=== PATIENT | male | born 1935 | race Caucasian/White ===

== ENCOUNTER 2018-08-28 08:47 | Day surgery (SDC) | payer MEDICARE, OTHER ==
[~2018-08-28] VITALS: Ht 152.4 cm; Wt 79.6 kg
[~2018-08-28 08:47] MED LIST: ALKA-SELTZER H1 EACH PO; ANTACID CHEWAB1 EACH PO; BENADRYL25 MG PO; IBUP800 PO
--- NOTE | 2018-08-28 09:47 | NUR ---
Ambulatory in Day Surgery History, Chart, Medications and Allergies reviewed before start of procedure.Patient confirms NPO status and agrees with scheduled surgery. Patient reports completing Chlorhexadine shower X2 prior to admission to hospital. MUCIPOIRIN AND CHLOREXADINE SHOWERS TIMES 5 DAYS DUE TO POSITIVE NASAL SWAB FOR STAPH. Surgical site prepped with 2% Chlorhexidine cloth wipe.
--- NOTE | 2018-08-28 10:23 | NUR ---
NOSIN NASAL SWABS DONE
--- NOTE | 2018-08-28 14:00 | NUR ---
PT ARRIVED TO ROOM IN OWN BED, A/0 X 4, PLEASANT/COOPERATIVE, NO PAIN AT THIS TIME PT RECVD SPINAL ANESTHESIA. NO N/V, PROVIDED FLUIDS AND SNACK. PT'S FAMILY IN ROOM. POST OP VS COMMENCED AND STABLE. GOOD CAPILLARY REFILL TO OPERATIVE LIMB, AQUACELL C/D/I
--- NOTE | 2018-08-28 19:20 | NUR ---
shift summary: post op vss, no acute changes, pod 0 l tka with spinal anesthesia, sensation to ble with gross and fine movement. pt tolerated PO intake, no n/v. No urine output at shift change, notifed next shift RN. pt states he has no sensation to urinate, provided with urinal. pt up to bathroom with nursing staff, plan PT tomorrow. pt reports no pain, encouraged to notify RN at onset of pain. pt understands aquacel and andres wrap to operative knee with no shadowing, trace swelling, normal pedal pulses an cap refill. pt a/0 x 4, pleasant/cooperative
[2018-08-29 04:55] LABS: BASOPHILS ABSOLUTE AUTO 0.02 K/mm3 (0.00-0.23); BASOPHILS PERCENT AUTO 0 % (0-2); EOSINOPHILS PERCENT AUTO 0 % (0-6); Hematocrit 39.2 % (37.0-53.0); IMMATURE GRAN ABSOLUTE AUTO 0.08 K/mm3 (0.00-0.10); IMMATURE GRAN PERCENT AUTO 0 % (0-1); LYMPHOCYTES ABSOLUTE AUTO 1.33 K/mm3 (0.84-5.20); LYMPHOCYTES PERCENT AUTO 7 % (21-46); MONOCYTES ABSOLUTE AUTO 1.11 K/mm3 (0.16-1.47); MONOCYTES PERCENT AUTO 6 % (4-13); Mean Corpuscular HGB 31.8 pg (26.0-34.0); Mean Corpuscular HGB Conc 33.2 g/dL (31.5-36.5); Mean Corpuscular Volume 96 fL (80-100); Mean Platelet Volume 9.5 fL (9.1-12.4); NEUTROPHILS ABSOLUTE AUTO 15.46 K/mm3 (1.96-9.15); NEUTROPHILS PERCENT AUTO 86 % (41-73); Platelet Count 194 K/mm3 (150-400); RDW Coefficient Variation 11.8 % (11.7-14.2); RDW Standard Deviation 41.1 fL (35.1-46.3); Red Blood Cell Count 4.09 M/mm3 (4.30-5.90)
[2018-08-29 05:12] LABS: Anion Gap 10 mmol/L (6-16); Blood Urea Nitrogen 31 mg/dL (8-24); Bun/Creatinine Ratio 31.5 (12.0-20.0); CO2, Blood 22 mmol/L (21-32); Calcium, Blood 8.1 mg/dL (8.5-10.1); Chloride, Blood 108 mmol/L (98-108); Creatinine, Blood 0.98 mg/dL (0.60-1.20); Glomerular Filtration Rate >60 (60-); Glucose, Blood 124 mg/dL (70-99); Potassium, Blood 4.2 mmol/L (3.5-5.5); Sodium, Blood 140 mmol/L (136-145)
--- NOTE | 2018-08-29 05:54 | NUR ---
SHIFT SUMMARY PT A&O X4; POD#1 L TKA; DRESSING CDI T/O SHIFT. PPPX4. CRYOTHERAPY TO L KNEE. RA; VSS. PT DENIES SOB, CP AND NAUSEA. PAIN MANAGED PER EMAR. RYANNE'S AND SCD'S TO BLE'S. CALL LIGHT IN REACH. WCTM UNTIL REPORT TO DAY SHIFT RN.
[2018-08-29] MEDS ORDERED: LO-DOSE ASPIRIN81 MG PO (12:22)
[2018-08-29] MEDS ORDERED: Percocet 5-3251 EACH PO (12:23)
--- NOTE | 2018-08-29 15:10 | NUR ---
PATIENT D/C'D HOME WITH SON AT THIS TIME. PATIENT STATES MINIMAL PAIN. TOLERATING PO. STATES UNDERSTANDING OF MEDS, WOUND CARE, ACTIVITY, OP PT, F/U APPT, ETC. NO C/O.
== END 2018-08-29 15:05 | disposition home or self-care (01) ==
LOC: ORSCMMR 08:47 → ORD 10:45 → SURS 14:00 → ORSCMMR 08-29 15:05
PROVIDERS: Orthopaedic Surgery
PROC: 0SRD0JA Replacement of Left Knee Joint with Synthetic Substitute, Uncemented, Open Approach (ICD-10-PCS; principal; 2018-08-28 10:45)
DX: M17.12 Unilateral primary osteoarthritis, left knee (principal); J44.9 Chronic obstructive pulmonary disease, unspecified; I10 Essential (primary) hypertension; J45.909 Unspecified asthma, uncomplicated; Z79.899 Other long term (current) drug therapy
CPT/HCPCS: 36415; 73560-LT; 80048; 85025; 86850; 86900; 86901; 88300; 97110; 97116; 97162; 97530; C1713; C1776; J0171; J0690; J0735; J1100; J1885; J2250; J2370; J2405; J2704; J2795; J7050; J7120; Q0163

== ENCOUNTER 2018-10-14 10:10 | Day surgery (SDC) | payer MEDICARE, OTHER ==
[~2018-10-14] VITALS: Ht 167.6 cm; Wt 77.9 kg
[~2018-10-14 10:10] MED LIST changes: +LO-DOSE ASPIRIN81 MG PO; +Percocet 5-3251 EACH PO
--- NOTE | 2018-10-14 10:48 | NUR ---
Ambulatory in Day Surgery History, Chart, Medications and Allergies reviewed before start of procedure. Lungs clear T/O to Auscultation. Patient confirms NPO status and agrees with scheduled surgery. Pre-Op teaching done. Pt verbalizes understanding.
--- NOTE | 2018-10-14 17:00 | NUR ---
SHIFT SUMMARY PT POD 0 R TKA. AQUACEL W/MARVIN WRAP C/D/I. PT STILL HAS NO SENSATION IN RLE BUT HAS GROSS MOTOR MOVEMENT. PT EDUCATED ON THE NEED TO CALL ONCE HE STARTS TO HAVE SENSATION TO ASSESS FOR PAIN AND MEDICATE IF NEEDED.
--- NOTE | 2018-10-15 04:33 | NUR ---
SHIFT SUMMARY PT A&O X4 T/O SHIFT. POD#1 R TKA; MARVIN WRAP TO R KNEE CDI; PPPX4; EXT PWD; PAIN MANAGED PER EMAR. NO ACUTE CHANGES; PT DENIED SOB, NAUSEA AND CP/P. CALL LIGHT IN REACH. PT UP TO TOILET WITH FWW AND SBA. BED ALARM FOR SAFETY WHILE SLEEPING. WCTM UNTIL REPORT TO DAY SHIFT RN.
[2018-10-15 05:19] LABS: BASOPHILS ABSOLUTE AUTO 0.02 K/mm3 (0.00-0.23); BASOPHILS PERCENT AUTO 0 % (0-2); EOSINOPHILS PERCENT AUTO 0 % (0-6); Hematocrit 39.2 % (37.0-53.0); Hemoglobin 12.6 g/dL (13.5-17.5); IMMATURE GRAN ABSOLUTE AUTO 0.08 K/mm3 (0.00-0.10); IMMATURE GRAN PERCENT AUTO 0 % (0-1); LYMPHOCYTES ABSOLUTE AUTO 1.25 K/mm3 (0.84-5.20); LYMPHOCYTES PERCENT AUTO 7 % (21-46); MONOCYTES ABSOLUTE AUTO 1.04 K/mm3 (0.16-1.47); MONOCYTES PERCENT AUTO 6 % (4-13); Mean Corpuscular HGB 31.4 pg (26.0-34.0); Mean Corpuscular HGB Conc 32.1 g/dL (31.5-36.5); Mean Corpuscular Volume 98 fL (80-100); Mean Platelet Volume 9.4 fL (9.1-12.4); NEUTROPHILS ABSOLUTE AUTO 15.94 K/mm3 (1.96-9.15); NEUTROPHILS PERCENT AUTO 87 % (41-73); Platelet Count 239 K/mm3 (150-400); RDW Coefficient Variation 11.6 % (11.7-14.2); Red Blood Cell Count 4.01 M/mm3 (4.30-5.90); White Blood Cell Count 18.33 K/mm3 (4.00-11.30)
[2018-10-15 05:33] LABS: Anion Gap 5 mmol/L (6-16); Blood Urea Nitrogen 27 mg/dL (8-24); Bun/Creatinine Ratio 29.1 (12.0-20.0); CO2, Blood 28 mmol/L (21-32); Calcium, Blood 8.2 mg/dL (8.5-10.1); Chloride, Blood 106 mmol/L (98-108); Creatinine, Blood 0.93 mg/dL (0.60-1.20); Glomerular Filtration Rate >60 (60-); Glucose, Blood 112 mg/dL (70-99); Potassium, Blood 4.4 mmol/L (3.5-5.5); Sodium, Blood 139 mmol/L (136-145)
[2018-10-15] MEDS ORDERED: Percocet 5-3251 EACH PO (11:22)
--- NOTE | 2018-10-15 14:31 | NUR ---
DISCHARGE PT AND HIS SON WERE PROVIDED WITH WRITTEN AND VERBAL DISCHARGE INSTRUCTIONS. THEY REPORTED UNDERSTANDING INSTRUCTIONS AFTER QUESTIONS WERE ANSWERED. DRESSINGS AND SCRIPTS PROVIDED. VSS. WILL MONITOR UNTIL REPORT TO ONCOMING RN.
== END 2018-10-15 14:37 | disposition home or self-care (01) ==
LOC: ORSCMMR 10:10 → ORD 11:40 → ORSCMMR 14:52 → SURS 14:52 → ORSCMMR 10-15 14:37 → SURS 10-15 14:37
PROVIDERS: Orthopaedic Surgery
PROC: 0SRC0JA Replacement of Right Knee Joint with Synthetic Substitute, Uncemented, Open Approach (ICD-10-PCS; principal; 2018-10-14 11:40)
DX: M17.11 Unilateral primary osteoarthritis, right knee (principal); Z01.818 Encounter for other preprocedural examination; I10 Essential (primary) hypertension; J45.909 Unspecified asthma, uncomplicated
CPT/HCPCS: 36415; 73560-RT; 80048; 85025; 86850; 86900; 86901; 88300; 97110; 97116; 97161; 97530; C1776; J0171; J0690; J0735; J1100; J1885; J2250; J2370; J2405; J2704; J2795; J7120

== ENCOUNTER 2020-04-20 13:52 | Emergency (ER) | payer OTHER ==
[~2020-04-20] VITALS: Ht 167.6 cm; Wt 81.7 kg
[2020-04-20 14:21] LABS: BASOPHILS ABSOLUTE AUTO 0.03 K/mm3 (0.00-0.23); BASOPHILS PERCENT AUTO 0 % (0-2); EOSINOPHILS ABSOLUTE AUTO 0.14 K/mm3 (0.00-0.68); EOSINOPHILS PERCENT AUTO 2 % (0-6); Hematocrit 48.6 % (37.0-53.0); Hemoglobin 16.1 g/dL (13.5-17.5); IMMATURE GRAN ABSOLUTE AUTO 0.03 K/mm3 (0.00-0.10); IMMATURE GRAN PERCENT AUTO 0 % (0-1); LYMPHOCYTES PERCENT AUTO 18 % (21-46); MONOCYTES ABSOLUTE AUTO 0.69 K/mm3 (0.16-1.47); MONOCYTES PERCENT AUTO 8 % (4-13); Mean Corpuscular HGB 31.9 pg (26.0-34.0); Mean Corpuscular HGB Conc 33.1 g/dL (31.5-36.5); Mean Corpuscular Volume 96 fL (80-100); Mean Platelet Volume 9.4 fL (9.1-12.4); NEUTROPHILS ABSOLUTE AUTO 6.55 K/mm3 (1.96-9.15); NEUTROPHILS PERCENT AUTO 73 % (41-73); Platelet Count 202 K/mm3 (150-400); RDW Coefficient Variation 11.7 % (11.7-14.2); RDW Standard Deviation 41.4 fL (35.1-46.3); Red Blood Cell Count 5.05 M/mm3 (4.30-5.90); White Blood Cell Count 9.04 K/mm3 (4.00-11.30)
[2020-04-20 14:39] LABS: Alanine Aminotransfer (ALT/SGP 19 U/L (12-78); Albumin, Blood 3.5 g/dL (3.4-5.0); Albumin/Globulin Ratio 0.9 (0.8-1.8); Alk Phos 74 U/L (50-136); Anion Gap 7 mmol/L (6-16); Aspartate Aminotrans (AST/SGOT 15 U/L (12-37); Bilirubin, Total 0.6 mg/dL (0.1-1.0); Blood Urea Nitrogen 17 mg/dL (8-24); Bun/Creatinine Ratio 18.4 (12.0-20.0); CO2, Blood 27 mmol/L (21-32); Calcium, Blood 8.7 mg/dL (8.5-10.1); Chloride, Blood 108 mmol/L (98-108); Creatinine, Blood 0.92 mg/dL (0.60-1.20); Globulin, Blood 3.8 g/dL (2.2-4.0); Glomerular Filtration Rate >60 (60-); Glucose, Blood 120 mg/dL (70-99); Sodium, Blood 142 mmol/L (136-145); Total Protein, Blood 7.3 g/dL (6.4-8.2)
[2020-04-20 17:09] LABS: Source, Urine Clean Catch
[2020-04-20 17:19] LABS: Appearance, Urine Clear (Clear); Bilirubin, Urine Neg (Neg); Blood, Urine 3+ (Neg); Color, Urine Yellow (P-Yellow); Glucose Qualitative, Urine Neg (Neg); Ketones, Urine Neg (Neg); Leukocyte Esterase, Urine Neg (Neg); Nitrite, Urine Neg (Neg); Protein, Urine Neg (Neg); Urobilinogen, Urine NORM (Normal)
[2020-04-20 17:29] LABS: Bacteria Not Seen /hpf; Squamous Epithelial Cells Not Seen /hpf (Few); White Blood Cells, Urine Not Seen /hpf (0-5)
[2020-04-20] MEDS ORDERED: ONDA4ODT MM (17:39)
[2020-04-20] MEDS ORDERED: ACETAMINOPHEN500 MG PO (17:39)
== END 2020-04-20 17:51 | disposition home or self-care (01) ==
LOC: ER 13:52
PROVIDERS: Physician Assistant
DX: N13.2 Hydronephrosis with renal and ureteral calculous obstruction (principal); J44.9 Chronic obstructive pulmonary disease, unspecified; Z79.82 Long term (current) use of aspirin
CPT/HCPCS: 74019; 74177; 80053; 81001; 83690; 85025; 96374; 96375; 99284-25; J1885; J2405; Q9967

== ENCOUNTER 2020-08-16 20:10 | Emergency (ER) | payer OTHER ==
[~2020-08-16] VITALS: Ht 170.2 cm; Wt 74.8 kg
[~2020-08-16 20:10] MED LIST changes: +ACETAMINOPHEN500 MG PO; +ONDA4ODT MM
[2020-08-16 20:34] LABS: BASOPHILS ABSOLUTE AUTO 0.03 K/mm3 (0.00-0.23); BASOPHILS PERCENT AUTO 0 % (0-2); EOSINOPHILS PERCENT AUTO 0 % (0-6); Hemoglobin 16.7 g/dL (13.5-17.5); IMMATURE GRAN PERCENT AUTO 1 % (0-1); LYMPHOCYTES ABSOLUTE AUTO 0.72 K/mm3 (0.84-5.20); LYMPHOCYTES PERCENT AUTO 5 % (21-46); MONOCYTES PERCENT AUTO 6 % (4-13); Mean Corpuscular HGB 32.7 pg (26.0-34.0); Mean Corpuscular HGB Conc 34.8 g/dL (31.5-36.5); Mean Corpuscular Volume 94 fL (80-100); Mean Platelet Volume 10.1 fL (9.1-12.4); NEUTROPHILS ABSOLUTE AUTO 12.66 K/mm3 (1.96-9.15); NEUTROPHILS PERCENT AUTO 89 % (41-73); Platelet Count 151 K/mm3 (150-400); RDW Coefficient Variation 11.8 % (11.7-14.2); Red Blood Cell Count 5.11 M/mm3 (4.30-5.90); White Blood Cell Count 14.31 K/mm3 (4.00-11.30)
[2020-08-16 20:49] LABS: Alanine Aminotransfer (ALT/SGP 23 U/L (12-78); Albumin, Blood 3.2 g/dL (3.4-5.0); Albumin/Globulin Ratio 0.8 (0.8-1.8); Alk Phos 68 U/L (50-136); Anion Gap 6 mmol/L (6-16); Aspartate Aminotrans (AST/SGOT 62 U/L (12-37); Bilirubin, Total 0.8 mg/dL (0.1-1.0); Blood Urea Nitrogen 21 mg/dL (8-24); Bun/Creatinine Ratio 19.4 (12.0-20.0); CO2, Blood 25 mmol/L (21-32); Calcium, Blood 8.5 mg/dL (8.5-10.1); Chloride, Blood 103 mmol/L (98-108); Creatinine, Blood 1.08 mg/dL (0.60-1.20); Globulin, Blood 4.2 g/dL (2.2-4.0); Glomerular Filtration Rate >60 (60-); Glucose, Blood 114 mg/dL (70-99); Sodium, Blood 134 mmol/L (136-145); Total Protein, Blood 7.4 g/dL (6.4-8.2)
[2020-08-16] MEDS ORDERED: CEPHALEXIN500 M1 PO (22:01)
== END 2020-08-16 22:45 | disposition home or self-care (01) ==
LOC: ER 20:10
PROVIDERS: Physician Assistant
DX: S09.90XA Unspecified injury of head, initial encounter (principal); J44.9 Chronic obstructive pulmonary disease, unspecified; L03.116 Cellulitis of left lower limb; Z79.899 Other long term (current) drug therapy; W01.0XXA Fall on same level from slipping, tripping and stumbling without subsequent striking against object, initial encounter
CPT/HCPCS: 70450; 80053; 85025; 93005; 93010; 93971; 99284-25; A9270

== ENCOUNTER 2020-12-23 10:55 | Inpatient (IN) | payer OTHER, MEDICARE ==
[~2020-12-23] VITALS: Ht 170.2 cm; Wt 74.8 kg
[~2020-12-23 10:55] MED LIST changes: +CEPHALEXIN500 M1 PO
[2020-12-23 13:04] LABS: BASOPHILS ABSOLUTE AUTO 0.03 K/mm3 (0.00-0.23); BASOPHILS PERCENT AUTO 0 % (0-2); EOSINOPHILS PERCENT AUTO 1 % (0-6); Hematocrit 47.5 % (37.0-53.0); Hemoglobin 15.8 g/dL (13.5-17.5); IMMATURE GRAN ABSOLUTE AUTO 0.07 K/mm3 (0.00-0.10); IMMATURE GRAN PERCENT AUTO 1 % (0-1); LYMPHOCYTES ABSOLUTE AUTO 1.02 K/mm3 (0.84-5.20); LYMPHOCYTES PERCENT AUTO 7 % (21-46); MONOCYTES ABSOLUTE AUTO 0.61 K/mm3 (0.16-1.47); MONOCYTES PERCENT AUTO 4 % (4-13); Mean Corpuscular HGB 32.2 pg (26.0-34.0); Mean Corpuscular HGB Conc 33.3 g/dL (31.5-36.5); Mean Corpuscular Volume 97 fL (80-100); Mean Platelet Volume 9.8 fL (9.1-12.4); NEUTROPHILS ABSOLUTE AUTO 12.25 K/mm3 (1.96-9.15); NEUTROPHILS PERCENT AUTO 87 % (41-73); Platelet Count 179 K/mm3 (150-400); RDW Coefficient Variation 11.8 % (11.7-14.2); RDW Standard Deviation 42.4 fL (35.1-46.3); Red Blood Cell Count 4.91 M/mm3 (4.30-5.90); White Blood Cell Count 14.08 K/mm3 (4.00-11.30)
[2020-12-23 13:22] LABS: Alanine Aminotransfer (ALT/SGP 27 U/L (12-78); Albumin, Blood 3.4 g/dL (3.4-5.0); Albumin/Globulin Ratio 0.9 (0.8-1.8); Alk Phos 73 U/L (50-136); Anion Gap 7 mmol/L (6-16); Aspartate Aminotrans (AST/SGOT 21 U/L (12-37); Bilirubin, Total 0.6 mg/dL (0.1-1.0); Blood Urea Nitrogen 16 mg/dL (8-24); Bun/Creatinine Ratio 17.4 (12.0-20.0); CO2, Blood 26 mmol/L (21-32); Chloride, Blood 109 mmol/L (98-108); Creatinine, Blood 0.92 mg/dL (0.60-1.20); Globulin, Blood 3.6 g/dL (2.2-4.0); Glomerular Filtration Rate >60 (60-); Glucose, Blood 96 mg/dL (70-99); Potassium, Blood 3.9 mmol/L (3.5-5.5); Sodium, Blood 142 mmol/L (136-145)
[2020-12-23 14:28] LABS: SARS-Cov-2 (COVID-19) PCR, MMC NEGATIVE (NEGATIVE)
--- NOTE | 2020-12-23 17:17 | NUR ---
History, Chart, Medications and Allergies reviewed before start of procedure.Lungs clear T/O to Auscultation. Patient confirms NPO status and agrees with scheduled surgery. Pre-Op teaching done. Pt verbalizes understanding.
--- NOTE | 2020-12-23 19:42 | NUR ---
12/23/201941 Susana Benavides PATIENT POSITIONED WITH THE ASSISTANCE OF DR. ACEVES. FINAL POSITION CLEARED BY THE SURGEON AND OR TEAM. SCROTUM PADDED AND CLEARED FOR SURGERY TO BEGIN.
--- NOTE | 2020-12-24 05:01 | NUR ---
SHIFT SUMMARY PT APPEARS TO BE CONFUSED AFTER SURGERY. HE BECOMES REPETITIVE WITH HIS QUESTIONS AT TIMES BUT APPROPRIATE, PLEASANT AND COOPERATIVE WITH CARE. BED ALARM IN PLACE FOR SAFETY. HE CAN BE EASILY REORIENTED. PT ON POD1 R HIP MAT WITH AQUACEL DRESSING, CDI. PT UNABLE TO VOID AFTER SURGERY, ATTEMPT TO USE URINAL BUT UNSUCCESFULL, BLADDER SCANNED AT MIDNIGHT. HE HAD 496ML, STRAIGHT CATH WITH 700 ML UA OUTPUT. PT DENIES PAIN. SLEPT GOOD AFTER MIDNIGHT. PT ALSO DENIES NUMBNESS AND TINGLING SENSATION. PEDAL PULSES ARE STRONG CAP REFILL WNL. PT ABLE TO MOVE ALL EXTREMITIES. ABX ALSO ADMINISTERED. TOLERATING PO INTAKE, HE JUST HAD WATER. DENIES NAUSEA AND VOMITING. CALL LIGHT WITHIN REACH. WILL PROVIDE REPORT TO ONCOMING NURSE.
--- NOTE | 2020-12-24 17:22 | NUR ---
SHIFT SUMMARY PT A&O1-2, CONFUSED/REORIENTS EASILY/PLEASANT & COOPERATIVE WITH CARE; TELEPHONE CALL WITH DAUGHTER CONFIRMS THIS IS PT BASELINE. VSS/RA. POD1 R MAT HIP, AQUACEL DRESSING CDI. DENIES PAIN; TYLENOL GIVEN ORDERED PER EMAR. BRENDAN PO, DENIES N&V. VOIDING WELL. AMBULATING SBA/FWW TO BRP/HALLWAY, UP TO CHAIR T/O SHIFT. PLAN FOR DC HOME SATURDAY WITH FAMILY, AFTER WORKING WITH PHYSICAL THERAPY IN AM. WILL REPORT TO JOSE CARR RN.
--- NOTE | 2020-12-25 06:49 | NUR ---
SHIFT SUMMARY POD2 R MAT HIP, ALERT BUT PLEASANTLY CONFUSED, DOES NOT USE CALL LIGHT, SBA TO BATHROOM, REDIRECTS EASILY BUT FORGETS QUICKLY, COOPERATIVE WITH ALL NURSING CARE, DENIES PAIN T/O SHIFT BUT WAS WILLING TO TAKE THE PRESCRIBED TYLENOL. NO ACUTE EVENTS THIS SHIFT. BED ALARM ON, CALL LIGHT IN REACH, WILL CTM AND REPORT TO DAY RN.
[2020-12-25] MEDS ORDERED: ACET500 PO (15:37)
[2020-12-25] MEDS ORDERED: SENN187 PO (15:38)
--- NOTE | 2020-12-25 16:17 | NUR ---
DISCHARGE INSTRUCTIONS GIVEN TO PATIENTS DAUGHTER AT THIS TIME. PATIENTS DAUGHTER VERBALIZED UNDERSTANDING OF DISCHARGE INSTRUCTIONS. PATIENT ASSISTED TO CARE IN WHEELCHAIR, TOLERATED WELL.
== END 2020-12-25 16:19 | disposition home or self-care (01) | DRG 522 ==
LOC: ER 10:55 → SURS 12:18
PROVIDERS: Emergency Medicine; ADMIT Orthopaedic Surgery
PROC: 0SRR0JA Replacement of Right Hip Joint, Femoral Surface with Synthetic Substitute, Uncemented, Open Approach (ICD-10-PCS; principal; 2020-12-23 15:00)
DX: S72.001A Fracture of unspecified part of neck of right femur, initial encounter for closed fracture (principal); Z20.822 Contact with and (suspected) exposure to COVID-19; M19.90 Unspecified osteoarthritis, unspecified site; J44.9 Chronic obstructive pulmonary disease, unspecified; Z79.82 Long term (current) use of aspirin; Z79.891 Long term (current) use of opiate analgesic; Z79.899 Other long term (current) drug therapy; W01.0XXA Fall on same level from slipping, tripping and stumbling without subsequent striking against object, initial encounter; Y92.007 Garden or yard of unspecified non-institutional (private) residence as the place of occurrence of the external cause
CPT/HCPCS: 36415; 71045; 72170; 73502; 80053; 85025; 93005; 93010; 96374; 97110; 97116; 97161; 99285-25; A9270; C1776; J0171; J0690; J0735; J1100; J1170; J1650; J1885; J2270; J2370; J2405; J2704; J2795; J3010; J7120; U0004

== ENCOUNTER → 2021-05-22 | Outpatient (CLI) | payer MEDICARE ==
[~2021-05-22] MED LIST changes: +ACET500 PO; +SENN187 PO
[2021-05-22 19:26] LABS: Alanine Aminotransfer (ALT/SGP 17 U/L (12-78); Albumin, Blood 3.3 g/dL (3.4-5.0); Alk Phos 78 U/L (50-136); Anion Gap 4 mmol/L (6-16); Aspartate Aminotrans (AST/SGOT 17 U/L (12-37); Bilirubin, Total 0.6 mg/dL (0.1-1.0); Blood Urea Nitrogen 19 mg/dL (8-24); Bun/Creatinine Ratio 22.1 (12.0-20.0); CO2, Blood 28 mmol/L (21-32); Calcium, Blood 8.4 mg/dL (8.5-10.1); Chloride, Blood 108 mmol/L (98-108); Creatinine, Blood 0.86 mg/dL (0.60-1.20); Globulin, Blood 3.3 g/dL (2.2-4.0); Glomerular Filtration Rate >60 (60-); Glucose, Blood 108 mg/dL (70-99); Potassium, Blood 4.4 mmol/L (3.5-5.5); Sodium, Blood 140 mmol/L (136-145); Total Protein, Blood 6.6 g/dL (6.4-8.2)
[2021-05-22 19:30] LABS: BASOPHILS ABSOLUTE AUTO 0.04 K/mm3 (0.00-0.23); BASOPHILS PERCENT AUTO 1 % (0-2); EOSINOPHILS ABSOLUTE AUTO 0.37 K/mm3 (0.00-0.68); EOSINOPHILS PERCENT AUTO 5 % (0-6); Hematocrit 46.8 % (37.0-53.0); Hemoglobin 15.4 g/dL (13.5-17.5); IMMATURE GRAN ABSOLUTE AUTO 0.03 K/mm3 (0.00-0.10); IMMATURE GRAN PERCENT AUTO 0 % (0-1); LYMPHOCYTES PERCENT AUTO 28 % (21-46); MONOCYTES ABSOLUTE AUTO 0.69 K/mm3 (0.16-1.47); MONOCYTES PERCENT AUTO 9 % (4-13); Mean Corpuscular HGB 31.6 pg (26.0-34.0); Mean Corpuscular HGB Conc 32.9 g/dL (31.5-36.5); Mean Corpuscular Volume 96 fL (80-100); Mean Platelet Volume 9.7 fL (9.1-12.4); NEUTROPHILS ABSOLUTE AUTO 4.45 K/mm3 (1.96-9.15); NEUTROPHILS PERCENT AUTO 57 % (41-73); Platelet Count 220 K/mm3 (150-400); RDW Coefficient Variation 12.6 % (11.7-14.2); RDW Standard Deviation 44.7 fL (35.1-46.3); Red Blood Cell Count 4.88 M/mm3 (4.30-5.90); White Blood Cell Count 7.78 K/mm3 (4.00-11.30)
== END | disposition home or self-care (01) ==
LOC: LAB 15:55 → LAB SHORT 15:55
PROVIDERS: Hospitalist
DX: R80.0 Isolated proteinuria (principal); R41.3 Other amnesia
CPT/HCPCS: 80053; 84443; 85025; 85651; 86592; 87086

== ENCOUNTER → 2022-10-24 | Outpatient (CLI) | payer MEDICARE ==
[2022-10-24 15:35] LABS: BASOPHILS ABSOLUTE AUTO 0.05 K/mm3 (0.00-0.23); BASOPHILS PERCENT AUTO 1 % (0-2); EOSINOPHILS ABSOLUTE AUTO 0.19 K/mm3 (0.00-0.68); EOSINOPHILS PERCENT AUTO 2 % (0-6); Hematocrit 51.5 % (37.0-53.0); Hemoglobin 17.3 g/dL (13.5-17.5); IMMATURE GRAN ABSOLUTE AUTO 0.03 K/mm3 (0.00-0.10); IMMATURE GRAN PERCENT AUTO 0 % (0-1); LYMPHOCYTES ABSOLUTE AUTO 1.35 K/mm3 (0.84-5.20); LYMPHOCYTES PERCENT AUTO 15 % (21-46); MONOCYTES ABSOLUTE AUTO 0.94 K/mm3 (0.16-1.47); MONOCYTES PERCENT AUTO 10 % (4-13); Mean Corpuscular HGB 32.1 pg (26.0-34.0); Mean Corpuscular HGB Conc 33.6 g/dL (31.5-36.5); Mean Corpuscular Volume 96 fL (80-100); Mean Platelet Volume 9.5 fL (9.1-12.4); NEUTROPHILS ABSOLUTE AUTO 6.55 K/mm3 (1.96-9.15); NEUTROPHILS PERCENT AUTO 72 % (41-73); Platelet Count 242 K/mm3 (150-400); RDW Coefficient Variation 11.9 % (11.7-14.2); Red Blood Cell Count 5.39 M/mm3 (4.30-5.90); White Blood Cell Count 9.11 K/mm3 (4.00-11.30)
[2022-10-24 19:21] LABS: Albumin, Blood 3.4 g/dL (3.4-5.0); Bilirubin, Total 0.8 mg/dL (0.1-1.0); Bun/Creatinine Ratio 18.5 (12.0-20.0); Calcium, Blood 9.1 mg/dL (8.5-10.1); Creatinine, Blood 0.92 mg/dL (0.60-1.20); Globulin, Blood 3.5 g/dL (2.2-4.0); Potassium, Blood 3.9 mmol/L (3.5-5.5); Total Protein, Blood 6.9 g/dL (6.4-8.2)
== END | disposition home or self-care (01) ==
LOC: LAB 14:27 → LAB SHORT 14:27
PROVIDERS: Hospitalist
DX: R11.2 Nausea with vomiting, unspecified (principal)
CPT/HCPCS: 80053; 85025

== ENCOUNTER → 2023-09-24 | Outpatient (CLI) | payer MEDICARE ==
[2023-09-24 11:03] LABS: Source, Urine Voided
[2023-09-24 12:07] LABS: Appearance, Urine Clear (Clear); Bilirubin, Urine Neg (Neg); Blood, Urine Neg (Neg); Color, Urine Yellow (P-Yellow); Glucose Qualitative, Urine Neg (Neg); Ketones, Urine 1+ (Neg); Leukocyte Esterase, Urine Neg (Neg); Nitrite, Urine Neg (Neg); Protein, Urine Neg (Neg); Urobilinogen, Urine 1+ (Normal)
== END | disposition home or self-care (01) ==
LOC: LAB SHORT 10:00 → LAB 10:00
PROVIDERS: Hospitalist
DX: R32 Unspecified urinary incontinence (principal)
CPT/HCPCS: 81003

== ENCOUNTER → 2024-03-26 | Outpatient (CLI) | payer MEDICARE | LOC: LAB 14:45 → LAB SHORT 14:45 | DX: R30.0 Dysuria (principal) | CPT/HCPCS: 87086 ==

== ENCOUNTER 2024-04-24 14:57 | Inpatient (IN) | payer MEDICARE ==
[~2024-04-24] VITALS: Ht 162.6 cm; Wt 80.1 kg
[2024-04-24] MEDS ORDERED: Morphine Sulfate 4 MG/1 ML Injection IV ONE (16:15)
[2024-04-24 16:22] LABS: BASOPHILS ABSOLUTE AUTO 0.04 K/mm3 (0.00-0.23); BASOPHILS PERCENT AUTO 0 % (0-2); EOSINOPHILS PERCENT AUTO 0 % (0-6); Hematocrit 41.5 % (37.0-53.0); Hemoglobin 13.7 g/dL (13.5-17.5); IMMATURE GRAN ABSOLUTE AUTO 0.12 K/mm3 (0.00-0.10); IMMATURE GRAN PERCENT AUTO 1 % (0-1); LYMPHOCYTES ABSOLUTE AUTO 1.28 K/mm3 (0.84-5.20); LYMPHOCYTES PERCENT AUTO 9 % (21-46); MONOCYTES ABSOLUTE AUTO 1.18 K/mm3 (0.16-1.47); MONOCYTES PERCENT AUTO 8 % (4-13); Mean Corpuscular HGB 32.2 pg (26.0-34.0); Mean Corpuscular Volume 98 fL (80-100); Mean Platelet Volume 9.5 fL (9.1-12.4); NEUTROPHILS ABSOLUTE AUTO 12.21 K/mm3 (1.96-9.15); NEUTROPHILS PERCENT AUTO 82 % (41-73); Platelet Count 217 K/mm3 (150-400); RDW Coefficient Variation 11.9 % (11.7-14.2); RDW Standard Deviation 43.2 fL (35.1-46.3); Red Blood Cell Count 4.25 M/mm3 (4.30-5.90); White Blood Cell Count 14.83 K/mm3 (4.00-11.30)
[2024-04-24 16:38] LABS: International Normalized Ratio 0.97; Prothrombin Time Results 10.4 Sec (9.7-11.5)
[2024-04-24 16:49] LABS: Albumin, Blood 3.1 g/dL (3.4-5.0); Albumin/Globulin Ratio 0.8 (0.8-1.8); Bilirubin, Total 0.7 mg/dL (0.1-1.0); Bun/Creatinine Ratio 20.8 (12.0-20.0); Calcium, Blood 8.4 mg/dL (8.5-10.1); Creatinine, Blood 0.91 mg/dL (0.60-1.20); Globulin, Blood 3.8 g/dL (2.2-4.0); Potassium, Blood 3.7 mmol/L (3.5-5.5); Total Protein, Blood 6.9 g/dL (6.4-8.2)
[2024-04-24] MEDS ORDERED: NS 1,000 ML IV SCH (18:10)
[2024-04-24] MEDS ORDERED: FentaNYL Citrate 50 MCG/ML 2 ML Injection IV PRN (18:10)
[2024-04-24] MEDS ORDERED: Ondansetron HCl 2 MG / ML 2ML Vial IV PRN (18:10)
[2024-04-24] MEDS ORDERED: OxyCODONE 5 mg/Acetamin 325 mg TABLET PO PRN (18:15)
[2024-04-24] MEDS ORDERED: CeFAZolin Sodium 2,000 MG in NS 100 ML IV SCH (18:30)
[2024-04-24] MEDS ORDERED: Albuterol 2.5 MG/3 ML VIAL INH PRN (18:35)
[2024-04-24] MEDS ORDERED: LORazepam 2 MG/ML 1ML Injection IV PRN (18:35)
[2024-04-24] MEDS ORDERED: MIRTAZAPINE7.5 M1 PO (18:48)
[2024-04-24] MEDS ORDERED: QUETIAPINE FUMA25 MG PO (18:49)
[2024-04-24] MEDS ORDERED: LORazepam 2 MG/ML 1ML Injection IV ONE (19:00)
[2024-04-24] MEDS ORDERED: FentaNYL Citrate 50 MCG/ML 2 ML Injection IV ONE ×2 (19:00)
[2024-04-24 20:53] VITALS: BP 135/84
[2024-04-24] MEDS ORDERED: Sennosides 8.6 MG Tab PO SCH (21:00)
[2024-04-24] MEDS ORDERED: Metoprolol Tartrate 25 MG Tab PO SCH (21:00)
--- NOTE | 2024-04-24 21:41 | NUR ---
ARRIVAL PT NEW ADMIT FROM ER. ARRIVED VIA [email or web address] A/OX2, ABLE TO STATE NAME BUT UNABLE TO VERIFY PLACE, SITUATION, WHAT HAPPENED, OR WHY HE IS HURTING. PLEASENT AND COOPERATIVE. RESTLESSNESS NOTED WHEN PAIN WAS INCREASING. PT MEDICATED WITH NORCO, NOTED TO CHEW PILLS. VSS, HR NOTED TO BE ELEVATED. PT REMAINS ASYMPTOMATIC. RLE REMAINS SHORTENED AND EXTERNALLY ROTATED. FAINT/THREADY PULSES IN BLE. +2 EDEMA NOTED IN BLE. REDDNESS NOTED FROM ABOUT KNEES TO FEET, NO HEAT NOTED. PT ABLE TO MOVE TOES ON COMMAND AND KEEPS ATTEMPTING TO MOVE RLE. WOUND CULTURE GATHERED FROM SCALP, PURULENT DRAINAGE NOTED ON A BRIGHT PINK ULCERATION. TOTAL AREA OF REDDNESS ABOUT 2 INCHES BY 2 INCHES, OPEN WOUND ABOUT 1 INCH BY 0.5 INCHES. CLEANED WITH NS AND GAUZE, PATTED DRY, XEROFORM APPLIED AND A NONADHERANT DRESSING APPLIED. BED IN LOW, BED ALARM ON, CALL LIGHT IN REACH
[2024-04-25] VITALS (14 sets, daily range): BP systolic 88–127; BP diastolic 55–82
--- NOTE | 2024-04-25 04:28 | NUR ---
SHIFT SUMMARY VSS, ELEVATED RR NOTED. RATE NOTED TO ELEVATE WHEN PT IS INTERACTING WITH STAFF. PT SLEPT WELL AFTER ARRIVING FROM THE ER. HAS BEEN NPO SINCE 0000. NO VOID NOTED T/O THE NIGHT, BLADDER SCAN SHOWS 311 ML'S. NOT ENOUGH TO CATH PER BLADDER MANAGEMENT PROTOCOL. ER REPORTED THAT THE PATIENT HAD COMPLETELY SATURATED THE BED RIGHT BEFORE TRANSPORT AND REQUIRED A BED-CHANGE. PT MEDICATED FOR PAIN WITH NORCO, GOOD RESULTS NOTED. RLE REMAINS SHORTENED AND EXTERNALLY ROTATED. EDEMA IN BLE NOTED TO BE SLIGHTLY INCREASED THIS AM. PT ABLE TO MOVE FOOT W/ENCOURAGEMENT. PT REMAINS A/OX1-2, YELLING OUT WITH CARE BUT ATTEMPTS TO ASSIST STAFF. SURGICAL [place] COMPLETED. THE PATIENT IS CURRENTLY RESTING, IN NO DISTRESS, CALL LIGHT IN REACH, BED ALARM ON.
[2024-04-25 06:15] LABS: Hematocrit 31.2 % (37.0-53.0); Hemoglobin 10.4 g/dL (13.5-17.5); Mean Corpuscular HGB Conc 33.3 g/dL (31.5-36.5); Mean Corpuscular Volume 99 fL (80-100); Mean Platelet Volume 9.9 fL (9.1-12.4); Platelet Count 160 K/mm3 (150-400); RDW Coefficient Variation 12.1 % (11.7-14.2); Red Blood Cell Count 3.15 M/mm3 (4.30-5.90); White Blood Cell Count 10.75 K/mm3 (4.00-11.30)
[2024-04-25 06:21] LABS: International Normalized Ratio 1.02; Prothrombin Time Results 10.9 Sec (9.7-11.5)
[2024-04-25 06:41] LABS: Bun/Creatinine Ratio 23.3 (12.0-20.0); Calcium, Blood 7.8 mg/dL (8.5-10.1); Creatinine, Blood 1.03 mg/dL (0.60-1.20); Magnesium, Blood 2.1 mg/dL (1.6-2.4); Potassium, Blood 4.2 mmol/L (3.5-5.5)
[2024-04-25] MEDS ORDERED: CeFAZolin Sodium 2,000 MG in NS 100 ML IV SCH ×2 (07:15→22:00)
[2024-04-25] MEDS ORDERED: Vancomycin HCL 1,000 MG in NS 250 ML IV SCH (07:20)
[2024-04-25] MEDS ORDERED: Ropivacaine 0.5% HCl/Pf 123.125 MG,EPINEPHrine HCL 0.25 MG,Ketorolac Tromethamine 15 MG... INFIL SCH (07:20)
[2024-04-25] MEDS ORDERED: Tranexamic Acid 100 ML IV SCH (07:20)
[2024-04-25] MEDS ORDERED: Polyethylene Glycol 3350 17 gm PO PRN (07:55)
[2024-04-25] MEDS ORDERED: Tranexamic Acid 100 ML IV ONE (08:13)
[2024-04-25] MEDS ORDERED: Docusate Sodium 100 MG Cap PO SCH ×2 (09:00→21:00)
[2024-04-25] MEDS ORDERED: Cholecalciferol 1000 Unit Tablet (=25MCG) PO SCH (09:00)
[2024-04-25] MEDS ORDERED: propofoL 20 ML IV ONE (10:45)
[2024-04-25] MEDS ORDERED: FLU VACC TS2024-25(6MOS UP)/PF 45 MCG/0.5 ML SYRINGE IM ONE (12:45)
[2024-04-25] MEDS ORDERED: TraMADol HCl 50 MG Tab PO PRN (12:45)
[2024-04-25] MEDS ORDERED: HYDROmorphone HCl/Pf 1MG SYR IV PRN (12:45)
[2024-04-25] MEDS ORDERED: Acetaminophen 325 MG TABLET PO PRN (12:45)
[2024-04-25] MEDS ORDERED: NS KCl 20mEq 1,000 ML IV SCH (12:45)
[2024-04-25] MEDS ORDERED: Bisacodyl 10 MG Supp PR PRN (12:45)
[2024-04-25] MEDS ORDERED: Naproxen 500 MG Tab PO PRN (12:50)
[2024-04-25] MEDS ORDERED: Naloxone HCl 0.4MG / ML 1ML Vial IV PRN (12:50)
[2024-04-25] MEDS ORDERED: Metoclopramide HCl 10 MG Tab PO PRN (12:50)
[2024-04-25] MEDS ORDERED: Magnesium Hydroxide Conc 10 ML UDC PO PRN (12:50)
[2024-04-25] MEDS ORDERED: Ondansetron HCl 2 MG / ML 2ML Vial IV PRN (12:55)
[2024-04-25] MEDS ORDERED: Ondansetron 4 MG TAB PO PRN (12:55)
--- NOTE | 2024-04-25 13:08 | NUR ---
PT TO OR AT APRXO 1255 ON BED
[2024-04-25] MEDS ORDERED: Ketorolac Tromethamine 15mg Vial IV PRN (13:10)
[2024-04-25] MEDS ORDERED: ePHEDrine Sulfate 50 MG/ML 1ML Injection ONE (13:42)
[2024-04-25] MEDS ORDERED: propofoL 50 ML IV ONE ×2 (13:45→15:33)
[2024-04-25] MEDS ORDERED: Dexamethasone Sod Phos 10 MG/ML 1ML VIAL ONE ×2 (13:53→14:45)
[2024-04-25] MEDS ORDERED: Ondansetron HCl 2 MG / ML 2ML Vial ONE ×2 (13:53→14:45)
--- NOTE | 2024-04-25 14:10 | NUR ---
04/25/24 1410 Eyal Jaffe SECOND IV STARTED 20G IN RIGHT ARM BY MARY Phillips OR NURSE.
[2024-04-25] MEDS ORDERED: Phenylephrine HCl 100 MCG/ML-NS 10MLSYR (1MG/10ML) ONE (14:45)
[2024-04-25] MEDS ORDERED: Vancomycin HCl 1000 MG ADDvantage ONE (15:54)
--- NOTE | 2024-04-25 16:56 | NUR ---
SHIFT SUMMARY THIS RN ASSUMED CARE AT APPROX 0715. PATIENT WITH HX OF DEMENTIA - ALERT AND ORIENTED TO SELF ONLY. DIFFICULTY FOLLOWING COMMANDS. BED ALARM ON. VSS. SBP 120s. MAP >65. ON ROOM AIR, SATs >90%. R FEMUR FX - RLE SHORTENED AND EXTERNALLY ROTATED. PPP. MANAGING PAIN PER EMAR PRIOR TO TRANSFER TO OR. MEDS CRUSHED IN PUDDING - NO SWALLOWING DIFFICULTIES NOTED. CURRENTLY OUT OF ROOM FOR REPAIR. FAMILY AT BEDSIDE THROUGHOUT DAY.
--- NOTE | 2024-04-25 18:29 | NUR ---
RETURN TO UNIT AFTER RECEIVING REPORT FROM CORPORATE SECURITY OFFICER, PATIENT RETURNED TO UNIT AT APPROX 1745. PATIENT ALERT - UNABLE TO ANSWER QUESTIONS OR FOLLOW COMMANDS. RESPONSIVE TO PAIN OR STIMULI. VSS. TOLERATING ROOM AIR, SATs >90%. S/P R ORIF WITH SPINAL - UNABLE TO ANSWER QUESTIONS REGARDING SENSATION. LARGE PRESSURE TAPE DRESSING - C/D/I. IVF INFUSING PER EMAR. BLADDER SCAN PERFORMED SHOWING 550ML. LAWSON CATHETER INSERTED PER ORDER FOR ACUTE RETENTION. DRAINING YELLOW URINE TO GRAVITY. CALL LIGHT IN REACH. BED ALARM ON.
[2024-04-25] MEDS ORDERED: Docusate Sodium/Senna 1 Tab PO SCH (21:00)
[2024-04-26] MEDS ORDERED: Vancomycin HCL 1,000 MG in NS 250 ML IV SCH (02:00)
[2024-04-26 05:28] LABS: BASOPHILS ABSOLUTE AUTO 0.02 K/mm3 (0.00-0.23); BASOPHILS PERCENT AUTO 0 % (0-2); EOSINOPHILS PERCENT AUTO 0 % (0-6); Hematocrit 22.5 % (37.0-53.0); Hemoglobin 7.2 g/dL (13.5-17.5); IMMATURE GRAN ABSOLUTE AUTO 0.07 K/mm3 (0.00-0.10); IMMATURE GRAN PERCENT AUTO 1 % (0-1); LYMPHOCYTES ABSOLUTE AUTO 1.28 K/mm3 (0.84-5.20); LYMPHOCYTES PERCENT AUTO 10 % (21-46); MONOCYTES ABSOLUTE AUTO 1.03 K/mm3 (0.16-1.47); MONOCYTES PERCENT AUTO 8 % (4-13); Mean Corpuscular HGB 32.1 pg (26.0-34.0); Mean Corpuscular Volume 100 fL (80-100); NEUTROPHILS ABSOLUTE AUTO 10.37 K/mm3 (1.96-9.15); NEUTROPHILS PERCENT AUTO 81 % (41-73); Platelet Count 134 K/mm3 (150-400); RDW Coefficient Variation 12.3 % (11.7-14.2); RDW Standard Deviation 44.8 fL (35.1-46.3); Red Blood Cell Count 2.24 M/mm3 (4.30-5.90); White Blood Cell Count 12.77 K/mm3 (4.00-11.30)
[2024-04-26 06:21] LABS: Bun/Creatinine Ratio 30.8 (12.0-20.0); Calcium, Blood 7.2 mg/dL (8.5-10.1); Creatinine, Blood 1.04 mg/dL (0.60-1.20); Magnesium, Blood 1.9 mg/dL (1.6-2.4); Potassium, Blood 4.1 mmol/L (3.5-5.5)
[2024-04-26 07:50] VITALS: BP 92/61
[2024-04-26] MEDS ORDERED: Ferrous Sulfate 325 MG Tab PO SCH (08:00)
[2024-04-26] MEDS ORDERED: Cephalexin Monohydrate 500 MG Cap PO SCH (09:00)
--- NOTE | 2024-04-26 09:54 | NUR ---
DR BELLE TO ROOM FOR DRESSING CHANGE. R HIP SURGICAL DRESSING REMOVED, INCISION CLEANED BY AND LARGE AQUACEL DRESSING PLACED. PT IS TO REMAIN STRICT TTWB TO RLE, NWB IF PT UNABLE TO FOLLOW TTWB STATUS.
--- NOTE | 2024-04-26 10:05 | NUR ---
MORNING NOTE THIS RN ASSUMED CARE AT APPROX 0715. PATIENT ALERT AND ORIENTED TO SELF ONLY. DIFFICULTY FOLLOWING COMMANDS. LABILE MOOD. OCCASIONALLY PULLS AT LINES, DEVICES. VSS. SBP 90s-100s. MAP >65. SCHEDULED PO METOPROLOL HELD DUE TO SOFT BP. ON ROOM AIR, SATs >90%. POD 1 R ORIF - GAUZE AND PRESSURE TAPE DX CHANGED TO AQUACEL DX BY MD BELLE. TOLERATING DIET - IV SALINE LOCKED. TOE TOUCH WEIGHT BEARING STATUS - PER MD BELLE IF UNABLE TO FOLLOW PRECAUTIONS, THEN HE IS NWB RLE TO AVOID FURTHER INJURY. AWAITING PHYSICAL THERAPY EVAL. MANAGING PAIN PER EMAR. LAWSON CATHETER DRAINING YELLOW URINE TO GRAVITY. CALL LIGHT IN REACH. BED ALARM ON. FAMILY AT BEDSIDE INTERMITTENTLY.
[2024-04-26] MEDS ORDERED: Trimethoprim/Sulfamethoxazole DS Tab PO SCH (11:00)
[2024-04-26 15:51] VITALS: BP 107/57
--- NOTE | 2024-04-26 16:31 | NUR ---
SHIFT SUMMARY NO ACUTE EVENTS SINCE MORNING NOTE. PATIENT REMAINS ALERT AND ORIENTED TO SELF ONLY. COOPERATIVE WITH CARE AT TIMES. DIFFICULTY FOLLOWING COMMANDS. DID REMOVE IVs THIS AFTERNOON - NO IV ACCESS ORDER PER MD PALMER. PATIENT TOLERATING PO INTAKE. VSS. SBP 90s-100s. MAP >65. REMAINS ON ROOM AIR, SATs >90%. RR EVEN, UNLABORED. AQUACEL DRESSING TO R HIP C/D/I. UP TO CHAIR WITH PHYSICAL THERAPY - 3 PERSON MAX ASSIST WITH TRANSFERS. MANAGING PAIN PER EMAR. LAWSON CATHETER IN PLACE DRAINING YELLOW URINE TO GRAVITY. CALL LIGHT IN REACH. BED ALARM ON.
[2024-04-26 18:36] VITALS: BP 117/60
[2024-04-26] MEDS ORDERED: Enoxaparin 30 MG/0.3 ML SYR SC SCH (19:00)
[2024-04-27] VITALS (12 sets, daily range): BP systolic 86–120; BP diastolic 42–76
--- NOTE | 2024-04-27 04:22 | NUR ---
NOC SUMMARY- PT REMAINS VERY CONFUSED. PT MEDICATED FOR PAIN WITH RELIEF. PT REPOSITIONED FREQUENTLY. PT LAWSON DRAINING TO GRAVITY. PT DRESSING C/D/I. CALL LIGHT IN REACH AND BED ALARM ON.
[2024-04-27] MEDS ORDERED: OxyCODONE HCL 5 MG TAB PO PRN (08:35)
[2024-04-27] MEDS ORDERED: Tamsulosin HCl 0.4 MG Cap PO SCH (09:00)
[2024-04-27 09:56] LABS: Hematocrit 19.2 % (37.0-53.0); Hemoglobin 6.2 g/dL (13.5-17.5); Mean Corpuscular HGB Conc 32.3 g/dL (31.5-36.5); Mean Corpuscular Volume 102 fL (80-100); Mean Platelet Volume 9.9 fL (9.1-12.4); Platelet Count 149 K/mm3 (150-400); RDW Coefficient Variation 12.4 % (11.7-14.2); RDW Standard Deviation 45.9 fL (35.1-46.3); Red Blood Cell Count 1.88 M/mm3 (4.30-5.90); White Blood Cell Count 10.55 K/mm3 (4.00-11.30)
[2024-04-27] MEDS ORDERED: NS 250 ML IV PRN (11:20)
--- NOTE | 2024-04-27 13:20 | NUR ---
BLOOD PRODUCT OBTAINED FROM BLOOD BANK. BLOOD CONSENT NOT ON CHART. DR. PALMER NOTIFIED OF NEED FOR BLOOD CONSENT AND BP OF 87/43. UNIT OF PRBC RETURNED TO BLOOD BANK WHILE WAITING FOR DR. PALMER TO OBTAIN CONSENT. PHONE CALL X2 PLACED TO PT'S DAUGHTER AND MARIAH ROLLE, MESSAGE LEFT REGARDING NEED FOR CONSENT. PT'S SON RONEL WAS CONTACTED AND WAS ABLE TO PROVIDE VERBAL CONSENT TO DR. PALMER OVER THE PHONE. PREVIOUS UNIT OF PRBC , NEW UNIT TO BE ISSUED BY BLOOD BANK. WAITING FOR UNIT TO ARRIVE AT THIS TIME.
--- NOTE | 2024-04-27 13:57 | NUR ---
UNIT OF PRBC STARTED AT 1351. LUNG SOUNDS DIM T/O BUT CLEAR AT START OF TRANSFUSION. PT RESTING WITH EYES CLOSED BUT RESPONDS WHEN SPOKEN TO. RESP RATE AND EFFORT EVEN AND UNLABORED.
--- NOTE | 2024-04-27 14:09 | NUR ---
RN AT BEDSIDE TO OBSERVE PT FOR THE FIRST 15 MINUTES OF HIS BLOOD TRANSFUSION. PT APPEARS TO BE TOLERATED WELL HE IS RESTING WITH EYES CLOSED AND RESPONDS TO VERBAL STIMULI/SPONTANEOUSLY WAKES AND TALKS WITH STAFF. BP REMAINS LOW. OTHER VSS.
[2024-04-27 19:28] LABS: Hematocrit 23.2 % (37.0-53.0); Hemoglobin 7.6 g/dL (13.5-17.5)
--- NOTE | 2024-04-27 19:32 | NUR ---
SHIFT SUMMARY PT IS POD#2 FROM R HIP REPAIR WITH DR. BELLE. PAIN MANAGED WITH TYLENOL THIS SHIFT. PT HAD 1 UNIT PRBC TODAY, HE TOLERATED WELL. LAWSON CATH REMOVED TODAY, WAITING FOR VOID, DR. PALMER NOTIFIED PT HAS NOT VOIDED SINCE CATH REMOVED BUT BLADDER SCAN WAS COMPLETED AT APPROXIMATELY 1600 AND 150ML FOUND IN HIS BLADDER. DR. PALMER AWARE WE ARE WAITING ON A VOID.
[2024-04-27] MEDS ORDERED: NS 1,000 ML IV SCH (20:00)
--- NOTE | 2024-04-27 20:30 | NUR ---
BED NEEDED FOR PEDIATRIC PT.TRANSFERRED PT TO RM 341 PER BED.REPORT GIVEN TO VAISHNAVI BARROS .
[2024-04-28] VITALS (8 sets, daily range): BP systolic 95–126; BP diastolic 52–66
[2024-04-28] MEDS ORDERED: ESCI10 PO (01:55)
--- NOTE | 2024-04-28 03:54 | NUR ---
SHIFT SUMMARY 88 YR M ADMITTED ON 04/24/24. DNR. PT ARRIVED TO MEDICAL UNIT FROM SURGICAL FLOOR AT APPROX 2030. NO ACUTE CHANGES SINCE TRANSFER. PT IS INCONTINENT OF URINE AND HAS HAD 2 VERY WET BRIEFS SO FAR THIS SHIFT. HE HAS HAD NO C/O PAIN OR DISCOMFORT AND HAS SLEPT OFF AND ON ALL NIGHT. PT IS VERY CONFUSED AND DOES NOT FOLLOW DIRECTION WELL WHEN REPOSITIONING OR CHANGING HIM. HE BECOMES FRUSTRATED WHEN MORE THAN 1 PERSON IS TALKING TO HIM. HE DOES BETTER IF YOU ASK HIM TO LOOK AT YOU AND EXPLAIN IN SIMPLE TERMS WHAT IT IS YOU ARE ASKING HIM TO DO. NEW MEPILEX PLACED ON PT'S HEAD TO HELP PREVENT PT FROM PICKING AT SCABS. NS INFUSING @ 50. WILL CONTINUE TO MONITOR. BED IN LOW POSITION AND CALL LIGHT IN REACH.
[2024-04-28 06:03] LABS: Hematocrit 21.1 % (37.0-53.0); Hemoglobin 6.9 g/dL (13.5-17.5); Mean Corpuscular HGB Conc 32.7 g/dL (31.5-36.5); Mean Corpuscular Volume 101 fL (80-100); Mean Platelet Volume 9.4 fL (9.1-12.4); NRBC ABSOLUTE 0.02 K/mm3 (0.00-0.02); NRBC Auto 0.2 /100 WBC (0.0-0.2); Platelet Count 146 K/mm3 (150-400); RDW Standard Deviation 50.2 fL (35.1-46.3); Red Blood Cell Count 2.09 M/mm3 (4.30-5.90); White Blood Cell Count 8.69 K/mm3 (4.00-11.30)
[2024-04-28 06:36] LABS: Albumin, Blood 2.1 g/dL (3.4-5.0); Anion Gap 9 mmol/L (3-11); Blood Urea Nitrogen 38 mg/dL (8-24); Bun/Creatinine Ratio 35.2 (12.0-20.0); CO2, Blood 23 mmol/L (21-32); Calcium, Blood 7.8 mg/dL (8.5-10.1); Chloride, Blood 120 mmol/L (98-108); Creatinine, Blood 1.08 mg/dL (0.60-1.20); Glomerular Filtration Rate 66 (60-); Glucose, Blood 97 mg/dL (70-99); Potassium, Blood 3.9 mmol/L (3.5-5.5); Sodium, Blood 148 mmol/L (136-145)
[2024-04-28] MEDS ORDERED: Sodium Phosphate Mono/Dibasic 250 MG Tab PO SCH (08:00)
[2024-04-28] MEDS ORDERED: NS 500 ML IV SCH (09:00)
[2024-04-28] MEDS ORDERED: Enoxaparin 40 MG/0.4 ML SYR SC SCH (09:00)
--- NOTE | 2024-04-28 10:27 | NUR ---
NOTE: SPOKE WITH DR. SOMMER OVER THE PHONE, HE SAID TO REMOVE THE DRESSING AND TAKE PICTURES OF BOTH THE WOUND AND DRESSING. HE WANTS THIS NURSE TO TEXT HIM THE PHOTOS. CLEAN THE WOUND WITH PEROXIDE AND APPLY A NEW AQUACELL.
--- NOTE | 2024-04-28 14:42 | NUR ---
TRANSFER NOTE PT TRANSFERRED TO SURGICAL FLOOR, ROOM 226. REPORT GIVEN TO YOGI NELSON. PT TAKEN TO ROOM BY BED.
--- NOTE | 2024-04-28 14:56 | NUR ---
PT TRANSFERRED TO ROOM 226. REPORT RECEIVED AND PT TRANSFERRED TO RM 226. BED ALARM ON FOR SAFETY. PT DENIES ANY NEEDS AT THIS TIME. WRAPPED THIGH IN MARVIN WRAP.
--- NOTE | 2024-04-28 14:58 | NUR ---
NOTE: FAMILY NOTIFIED OF THE PT'S TRANSFER TO ROOM 226 ON SURGICAL FLOOR.
--- NOTE | 2024-04-28 14:59 | NUR ---
NOTIFIED PT'S DAUGHTER, AQUILINO, OF PT MOVING TO ROOM 226.
--- NOTE | 2024-04-28 17:26 | NUR ---
SUMMARY NO ACUTE CHANGES SINCE ARRIVING TO 226. BED ALARM ON FOR SAFETY. PT'S FAMILY IN TO SEE PT THIS AFTERNOON. PT CONFUSED BUT PLEASANT. CHANGED ATTENDS AND REPOSITIONED. OFFERED SIPS OF MILKSHAKE PT'S FAMILY BROUGHT. PT WATCHING TV.
[2024-04-29 03:23] VITALS: BP 133/63
--- NOTE | 2024-04-29 03:43 | NUR ---
SHIFT SUMMARY NOC PT A/O TO SELF. PLEASANTLY CONFUSED AND NEEDS CUE'S TO FOLLOW DIRECTIONS. PT POST OP DAY 4 FROM R ORIF, AQUACEL DRESSING INTACT C/D/I WITH MARVIN WRAP TO PROTECT FROM PT ATTEMPTING TO REMOVE IT. NS INFUSING @ 100 ML/HR. PT HAS NOT HAD C/O OF PAIN. IN CONTACT ISOLATION FOR MRSA. PT HAD XL HARD BM DURING SHIFT, GUAIAC SAMPLE SENT TO LAB, ALSO SOAKED BRIEF WITH URINE. PT HGB 6.9 YESTERDAY AND RECEIVED 1 UNIT PRBC, WILL MONITOR AM LABS FOR IMPROVEMENT. PT CURRENTLY RESTING WITH BED IN LOWEST POSITION, AND CALL LIGHT WITHIN REACH.
[2024-04-29 05:28] LABS: Hematocrit 25.4 % (37.0-53.0); Hemoglobin 8.5 g/dL (13.5-17.5); Mean Corpuscular HGB Conc 33.5 g/dL (31.5-36.5); Mean Platelet Volume 9.2 fL (9.1-12.4); NRBC ABSOLUTE 0.02 K/mm3 (0.00-0.02); NRBC Auto 0.2 /100 WBC (0.0-0.2); Platelet Count 183 K/mm3 (150-400); RDW Coefficient Variation 17.2 % (11.7-14.2); RDW Standard Deviation 57.8 fL (35.1-46.3); Red Blood Cell Count 2.66 M/mm3 (4.30-5.90); White Blood Cell Count 9.28 K/mm3 (4.00-11.30)
[2024-04-29 06:05] LABS: Albumin, Blood 2.3 g/dL (3.4-5.0); Anion Gap 10 mmol/L (3-11); Blood Urea Nitrogen 25 mg/dL (8-24); Bun/Creatinine Ratio 28.7 (12.0-20.0); CO2, Blood 22 mmol/L (21-32); Calcium, Blood 7.7 mg/dL (8.5-10.1); Chloride, Blood 120 mmol/L (98-108); Creatinine, Blood 0.87 mg/dL (0.60-1.20); Glomerular Filtration Rate 82 (60-); Glucose, Blood 98 mg/dL (70-99); Phosphorus, Blood 2.3 mg/dL (2.5-4.9); Potassium, Blood 3.8 mmol/L (3.5-5.5); Sodium, Blood 148 mmol/L (136-145)
[2024-04-29 06:15] LABS: Mean Corpuscular Volume 96 fL (80-100)
--- NOTE | 2024-04-29 06:26 | NUR ---
SHIFT SUMMARY NOC PT A/O TO SELF. PLEASANTLY CONFUSED AND NEEDS CUE'S TO FOLLOW DIRECTIONS. PT POST OP DAY 4 FROM R ORIF, AQUACEL DRESSING INTACT C/D/I WITH MARVIN WRAP TO PROTECT FROM PT ATTEMPTING TO REMOVE IT. NS INFUSING @ 100 ML/HR. PT HAS NOT HAD C/O OF PAIN. IN CONTACT ISOLATION FOR MRSA. PT HAD XL HARD BM DURING SHIFT, GUAIAC SAMPLE SENT TO LAB, ALSO SOAKED BRIEF WITH URINE. PT HGB 8.5 TODAY AFTER RECEIVING 1 UNIT PRBC YESTERDAY. PT CURRENTLY RESTING WITH BED IN LOWEST POSITION, AND CALL LIGHT WITHIN REACH.
[2024-04-29 07:27] VITALS: BP 124/57
[2024-04-29 11:18] LABS: Stool Occult Blood Guaiac 1 Pos (Neg)
--- NOTE | 2024-04-29 14:35 | NUR ---
MET WITH PATIENT AND FAMILY, DL ROLLE AND RONEL. WE DISCUSSED OPTION FOR DISCHARGE. FACILITY WAS COMING TO ASSESS PATIENT. DISCUSSED OPTIONS FOR DISCHARGE. WEIGHED PROS AND CONS OF HALF-WAY FACILITY VS HOME HEALTH. WE DISCUSSED OPTION FOR HOSPICE OR PALLIATIVE CARE WELL. PATIENT WILL BE REASSESSED BY PT AND OT AND WE WILL WAIT FOR THEIR RECOMENDATIONS TO HELP GUIDE A CHOICE.
[2024-04-29 15:23] VITALS: BP 126/61
[2024-04-29 18:04] LABS: Hematocrit 27.6 % (37.0-53.0); Hemoglobin 8.8 g/dL (13.5-17.5); Mean Corpuscular HGB 31.3 pg (26.0-34.0); Mean Corpuscular HGB Conc 31.9 g/dL (31.5-36.5); Mean Corpuscular Volume 98 fL (80-100); Mean Platelet Volume 9.3 fL (9.1-12.4); Platelet Count 191 K/mm3 (150-400); RDW Coefficient Variation 16.8 % (11.7-14.2); RDW Standard Deviation 56.6 fL (35.1-46.3); Red Blood Cell Count 2.81 M/mm3 (4.30-5.90); White Blood Cell Count 8.91 K/mm3 (4.00-11.30)
--- NOTE | 2024-04-29 18:39 | NUR ---
SHIFT SUMMARY POD5 R FEMUR ORIF, A/OX1 SELF ONLY, VSS, TOLERATING PO THOUGH HE IS SOMETIMES NOT WILLING TO TAKE MEDS. ATTEMPTED TO HAVE HIM WORK WITH THERAPY TO DETERMIN REHAB POTENTIAL WHICH WAS UNSUCCESSFUL. PALLIATIVE CARE ON BOARD ASSISTING WITH DISCHARGE AND ADVANCE CARE PLANNING, R/O FOR DVT TODAY. NO ACUTE EVENTS, CALL LIGHT IN REACH.
[2024-04-30 03:58] VITALS: BP 145/57
[2024-04-30 05:48] LABS: BASOPHILS ABSOLUTE AUTO 0.03 K/mm3 (0.00-0.23); BASOPHILS PERCENT AUTO 0 % (0-2); EOSINOPHILS ABSOLUTE AUTO 0.41 K/mm3 (0.00-0.68); EOSINOPHILS PERCENT AUTO 5 % (0-6); Hematocrit 28.1 % (37.0-53.0); Hemoglobin 9.3 g/dL (13.5-17.5); IMMATURE GRAN ABSOLUTE AUTO 0.13 K/mm3 (0.00-0.10); IMMATURE GRAN PERCENT AUTO 1 % (0-1); LYMPHOCYTES ABSOLUTE AUTO 1.31 K/mm3 (0.84-5.20); LYMPHOCYTES PERCENT AUTO 14 % (21-46); MONOCYTES ABSOLUTE AUTO 0.69 K/mm3 (0.16-1.47); MONOCYTES PERCENT AUTO 8 % (4-13); Mean Corpuscular HGB 32.4 pg (26.0-34.0); Mean Corpuscular HGB Conc 33.1 g/dL (31.5-36.5); Mean Corpuscular Volume 98 fL (80-100); Mean Platelet Volume 9.2 fL (9.1-12.4); NEUTROPHILS ABSOLUTE AUTO 6.63 K/mm3 (1.96-9.15); NEUTROPHILS PERCENT AUTO 72 % (41-73); Platelet Count 216 K/mm3 (150-400); RDW Coefficient Variation 16.7 % (11.7-14.2); RDW Standard Deviation 55.8 fL (35.1-46.3); Red Blood Cell Count 2.87 M/mm3 (4.30-5.90)
[2024-04-30 06:17] LABS: Albumin, Blood 2.5 g/dL (3.4-5.0); Anion Gap 11 mmol/L (3-11); Blood Urea Nitrogen 20 mg/dL (8-24); Bun/Creatinine Ratio 25.5 (12.0-20.0); CO2, Blood 24 mmol/L (21-32); Calcium, Blood 8.1 mg/dL (8.5-10.1); Chloride, Blood 117 mmol/L (98-108); Creatinine, Blood 0.78 mg/dL (0.60-1.20); Glomerular Filtration Rate 85 (60-); Glucose, Blood 90 mg/dL (70-99); Phosphorus, Blood 2.7 mg/dL (2.5-4.9); Potassium, Blood 3.5 mmol/L (3.5-5.5); Sodium, Blood 148 mmol/L (136-145)
--- NOTE | 2024-04-30 07:30 | NUR ---
NOC SUMMARY- PT HAD DIFFICULTY FOLLOWING ANY DIRECTIONS. PT WAS ABLE TO TAKE PM MEDS CRUSHED WITH APPLESAUCE. PT BRIEF WAS CHANGED NEEDED. PT WOULD TRY TO HIT STAFF DURING BRIEF CHANGES. PT WAS NOT REDIRECTABLE. PT WAS ABLE TO SLEEP SOME THIS AM. PT DID PULL OUT HIS IV THIS AM. PT HEAD WOUND IS DRY AND OPEN TO AIR. PT R LEG DRESSING HAS SHADOWING NOTED BUT IS INTACT AND REMAINS ON PT. PT IS VOIDING WELL. NO BM THIS SHIFT. BED ALARM ON.
[2024-04-30 07:31] VITALS: BP 134/64
--- NOTE | 2024-04-30 10:47 | NUR ---
PT GIVEN PO MEDICATIONS WHOLE IN APPLESAUCE, PT TOLERATED WELL AND TOOK ALL MEDICATION W/O DIFFICULTY. EXTENSIVE BRUISING TO R THIGH, MOD AMT DRAINAGE PRESENT ON AQUACEL SO CHANGED AT THIS TIME. PT HAD REMOVED DRESSING TO HEAD WOUND, APPEARS THAT HE HAS BEEN SCRATCHING THIS WOUND IT HAS INCREASED DRAINAGE FROM PREVIOUS OBSERVATION BY THIS RN, NON-ADHERENT DRESSING PLACED.
[2024-04-30 14:31] VITALS: BP 100/59
[2024-04-30 19:33] VITALS: BP 130/72
[2024-05-01 03:51] VITALS: BP 129/67
[2024-05-01 07:33] VITALS: BP 147/72
--- NOTE | 2024-05-01 08:19 | NUR ---
SHIFT SUMMARY NOC. PT POD 7 FOR RIGHT FEMUR ORIF. AQUACEL C/D/I. PT A/O X1. PT MEDICATED FOR PAIN X1. SIGNIFICANT PURPLE BRUISING NOTED ON RLE/HIP. PT INCONTINENT OF URINE. PT RESTED WITH CALL LIGHT IN REACH AND BED ALARM SET.
--- NOTE | 2024-05-01 10:29 | NUR ---
DISCHARGE ON HOSPICE. PATIENT ABLE TO TAKE A PAIN PILL THIS MORNING, WAS CHANGED AND BATHED PRIOR TO DC. ALERT ORIENTED TO SELF ONLY. TRANSPORT ARIVED AT 1015, ALL PAPER WORK GIVEN TO MEDICAL TRANSPORTER. ALL BELONGINGS BAGGED UP AND SENT WITH HEAD OF MEASUREMENT & INSIGHTS. FAMILY WAS IN THIS AM AND ARE AWAITING TRANSFER TO HOSPICE.
== END 2024-05-01 10:15 | disposition home or self-care (01) | DRG 481 ==
LOC: ER 14:57 → SURS 14:58 → MEDS 14:58 → ERHOLD 14:58 → SURS 20:03 → MEDS 04-27 20:36 → SURS 04-28 14:54
PROVIDERS: Family Medicine; Internal Medicine; Nurse Practitioner Acute Care; Orthopaedic Surgery; Student in an Organized Health Care Education/Training Program; ADMIT Internal Medicine
PROC: 0QS604Z Reposition Right Upper Femur with Internal Fixation Device, Open Approach (ICD-10-PCS; principal; 2024-04-25 09:15)
PROC: 30233N1 Transfusion of Nonautologous Red Blood Cells into Peripheral Vein, Percutaneous Approach (ICD-10-PCS; 2024-04-27)
DX: S72.141A Displaced intertrochanteric fracture of right femur, initial encounter for closed fracture (principal); D62 Acute posthemorrhagic anemia; M97.01XA Periprosthetic fracture around internal prosthetic right hip joint, initial encounter; I48.91 Unspecified atrial fibrillation; G30.9 Alzheimer's disease, unspecified; F02.80 Dementia in other diseases classified elsewhere, unspecified severity, without behavioral disturbance, psychotic disturbance, mood disturbance, and anxiety; Z85.820 Personal history of malignant melanoma of skin; Z51.5 Encounter for palliative care; Z66 Do not resuscitate; R60.0 Localized edema; J44.9 Chronic obstructive pulmonary disease, unspecified; W18.39XA Other fall on same level, initial encounter; Y92.099 Unspecified place in other non-institutional residence as the place of occurrence of the external cause; Z96.653 Presence of artificial knee joint, bilateral
CPT/HCPCS: 36415; 36430; 70450; 73030; 80048; 80053; 80069; 82270; 82728; 83036; 83735; 83880; 84443; 84484; 85014; 85018; 85025; 85027; 85610; 85730; 86850; 86900; 86901; 86923; 87040; 87070; 87075; 87077; 87186; 87205; 93005; 93010; 93306; 93971; 94760; 94762; 96374; 97163; 97165; 99285-25; A9270; J0171; J0690; J0735; J1100; J1650; J1885; J2270; J2371; J2405; J2704; J2795; J3010; J3370; J3480; J7030; J7050; P9016